=== PATIENT | male | born 1955 | race Asian ===

== ENCOUNTER 2016-11-21 06:49 | Day surgery (SDC) | payer BC ==
[~2016-11-21] VITALS: Ht 162.6 cm; Wt 76.2 kg
[~2016-11-21 06:49] MED LIST: IBUP-1542; LISI1TAB; supplements
[2016-11-21 07:14] VITALS: Ht 162.6 cm; Wt 76.2 kg
[2016-11-21 07:21] VITALS: BP 130/82; PULSE 67; RESP 16
[2016-11-21 09:04] VITALS: BP 118/73; PULSE 58; RESP 13
[2016-11-21] MEDS ORDERED: MIDAZOLAM 1 MG/ML 2 ML INJ ONE ×2 (09:06→09:07)
[2016-11-21] MEDS ORDERED: FENTAnyl 50 MCG/ML VIAL ONE (09:06)
[2016-11-21 09:30] VITALS: BP 99/71; RESP 20
--- NOTE | 2016-11-22 10:15 | GILP ---
DATE OF PROCEDURE: 11/21/2016 PROCEDURE PERFORMED: Colonoscopy and biopsy. SURGEON: Ivonne Busch M.D. PREOPERATIVE DIAGNOSIS: Screening colonoscopy. POSTOPERATIVE DIAGNOSES: 1. Colonoscopy all the way to the cecum. 2. Small transverse colon polyp was removed using the biopsy forceps. 3. Diverticulosis of the colon. 4. Internal hemorrhoids. INDICATION: Mr. Efra Jaquez is a 61-year-old male patient who was scheduled for screening colonoscopy. The procedure and possible complications were well explained to the patient. The patient understood and consented to the procedure. DESCRIPTION OF PROCEDURE: Under the influence of fentanyl and Versed the colonoscope was carefully introduced into the rectum and under direct vision it was advanced all the way to the cecum. FINDINGS: The patient had a small transverse colon polyp and it was removed using the biopsy forceps. He was noted to have diverticulosis of the colon and internal hemorrhoids. He tolerated the procedure very well, and there was no complication from the procedure. At the end of procedure he was awake with stable vital signs and he was discharged home in the care of his family. IMPRESSION: 1. Colonoscopy all the way to the cecum. 2. Small transverse colon polyp was removed using the biopsy forceps. 3. Diverticulosis of the colon. 4. Internal hemorrhoids. PLAN: Await histopathology report. Next screening colonoscopy in 10 years. Dictated By: MD REYES Pinedo/narendra/franky /Document#: [id number]
== END 2016-11-21 12:45 | disposition home or self-care (01) ==
LOC: GIL 06:49
PROVIDERS: ATTEND Internal Medicine Gastroenterology
DX: Z12.11 Encounter for screening for malignant neoplasm of colon (principal); D12.3 Benign neoplasm of transverse colon; K57.90 Diverticulosis of intestine, part unspecified, without perforation or abscess without bleeding; K64.8 Other hemorrhoids; I10 Essential (primary) hypertension
CPT/HCPCS: 45380; 88305; J2250; J3010; Z7610